=== PATIENT | male | born 1965 | race Two or more races ===

== ENCOUNTER 2017-08-01 22:41 | Emergency (ER) | payer BC ==
[~2017-08-01] VITALS: Ht 182.9 cm; Wt 87.5 kg
[2017-08-01] MEDS ORDERED: SULFAMETH/TRIMETH 800/160 MG TABLET PO ONE (23:00)
[2017-08-01 23:03] VITALS: BP 118/84
[2017-08-01] MEDS ORDERED: SULFAMETH/TRIMETH 800/160 MG TABLET ONE (23:14)
== END 2017-08-01 23:04 | disposition home or self-care (01) ==
LOC: ER 22:43
DX: S60.452A Superficial foreign body of right middle finger, initial encounter (principal); W45.8XXA Other foreign body or object entering through skin, initial encounter; Y93.89 Activity, other specified; Y92.89 Other specified places as the place of occurrence of the external cause; Y99.8 Other external cause status
CPT/HCPCS: A4663